=== PATIENT | female | born 1970 | race African-American/Black ===

== ENCOUNTER 2021-04-22 16:01 | Emergency (ER) | payer OTHER ==
[2021-04-22 16:11] VITALS: BP 140/88; PULSE 81; TEMP 97.9; BMI 34.2
== END 2021-04-22 16:30 | disposition home or self-care (01) ==
LOC: JER 16:01
DX: Z20.822 Contact with and (suspected) exposure to COVID-19 (principal)
CPT/HCPCS: 99283-25; C9803; U0003; U0005